=== PATIENT | male | born 1965 | race Caucasian/White ===

== ENCOUNTER 2022-01-09 04:06 | Emergency (ER) | payer OTHER ==
[~2022-01-09] VITALS: Ht 175.3 cm; Wt 79.4 kg
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
--- NOTE | 2022-01-09 06:03 | NUR ---
Patient discharged to custody in stable condition. Written and verbal after care instructions given. Patient verbalizes understanding of instruction. pt ambulatory with a steady gait
[2022-01-09 06:04] VITALS: BP 139/81
== END 2022-01-09 06:05 | disposition home or self-care (01) ==
LOC: ER 04:14
DX: S09.90XA Unspecified injury of head, initial encounter (principal); Z60.2 Problems related to living alone; W22.8XXA Striking against or struck by other objects, initial encounter; Y93.89 Activity, other specified; Y92.89 Other specified places as the place of occurrence of the external cause; Y99.8 Other external cause status
CPT/HCPCS: 70450-TC